=== PATIENT | male | born 1955 | race Caucasian/White ===

== ENCOUNTER 2016-12-13 07:03 | Inpatient (IN) | payer MEDICAID, MEDICARE, OTHER ==
[~2016-12-13] VITALS: Ht 172.7 cm; Wt 100.0 kg
[2016-12-13] VITALS (12 sets, daily range): BP systolic 65–151; BP diastolic 37–84; PULSE 84–110; RESP 14–28; TEMP 98; O2SAT 0–100
[~2016-12-13 07:03] MED LIST: MELO15TA2 PO; NOVO7030P2 SQ; TRAM50 PO
[2016-12-13] MEDS ORDERED: LISI-519 PO (07:10)
[2016-12-13] MEDS ORDERED: PLAV75TA29 PO (07:10)
[2016-12-13] MEDS ORDERED: ALPR0.25 PO (07:10)
[2016-12-13] MEDS ORDERED: ATOR40TA16 PO (07:10)
[2016-12-13] MEDS ORDERED: METF500T PO ×2 (07:10→09:53)
[2016-12-13] MEDS: NITROGLYCERIN 0.4 MG SL 25 TABS/BTL SL SCH ×3 (07:23→07:33)
[2016-12-13] MEDS ORDERED: SODIUM CHLORID 0.9% 500 ML INJ 500 ML IV ONE ×2 (07:30→08:30)
[2016-12-13] MEDS ORDERED: MORPHINE SULFATE 4 MG/ML INJ IV PUSH ONE (07:30)
[2016-12-13] MEDS ORDERED: SODIUM CHLORIDE 0.9% FLUSH 5 ML FLUSH IVF PRN (07:30)
[2016-12-13 07:42] LABS: BASOPHIL % 0.6 % (0.0-2.0); EOSINOPHIL # 1.1 TH/MM3 (0-0.4); EOSINOPHIL % 15.2 % (0.0-4.0); HEMATOCRIT 42.7 % (39.0-51.0); HEMO FLAGS DIFF FINAL; LYMPH % 19.9 % (9.0-44.0); LYMPHOCYTE # 1.4 TH/MM3 (1.0-4.8); MEAN CELL VOLUME 93.2 FL (80.0-100.0); MEAN CORPUSCULAR HEMOGLOBIN 30.9 PG (27.0-34.0); MEAN CORPUSCULAR HGB CONC 33.1 % (32.0-36.0); MONO % 7.5 % (0.0-8.0); NEUT % 56.8 % (16.0-70.0); PLATELET COUNT 248 TH/MM3 (150-450); RED BLOOD COUNT 4.58 MIL/MM3 (4.50-5.90); RED CELL DISTRIBUTION WIDTH 14.9 % (11.6-17.2); WHITE BLOOD COUNT 7.1 TH/MM3 (4.0-11.0)
--- NOTE | 2016-12-13 07:43 | RADRPT ---
EXAM DATE/TIME: 12/13/2016 07:33 [place] COMPARISON: No previous studies available for comparison. INDICATIONS : Chest Pain x 3 hours MEDICAL HISTORY : [facility] SURGICAL HISTORY : None. ENCOUNTER: Initial ACUITY: 1 day PAIN SCORE: 7/10 LOCATION: Bilateral chest FINDINGS: A single portable frontal view the chest shows interstitial prominence at the bases bilaterally. No e ffusions. Heart normal in size. No intra-alveolar infiltrates. Degenerative and scoliotic thoracic sp ine. CONCLUSION: Cardiomegaly with basilar interstitial prominence. This may relate to interstitial pulmonary edema. Abelino Moran Jr., MD on December 13, 2016 at 7:41 Board Certified Radiologist. This report was verified electronically.
[2016-12-13 07:53] LABS: APTT (PATIENT) 26.6 SEC (24.3-30.1); PROTHROMBIN TIME - PATIENT 11.4 SEC (9.8-11.6)
[2016-12-13 07:59] LABS: ANION GAP 12 MEQ/L (5-15); BICARBONATE 24.3 MEQ/L (21.0-32.0); BLOOD UREA NITROGEN 17 MG/DL (7-18); CHLORIDE 98 MEQ/L (98-107); GLOMERULAR FILTRATION RATE 46 ML/MIN (>89); MAGNESIUM 1.9 MG/DL (1.5-2.5); POTASSIUM 4.8 MEQ/L (3.5-5.1); SODIUM (NA) 134 MEQ/L (136-145)
[2016-12-13 08:03] LABS: CREATINE KINASE 194 U/L (39-308)
[2016-12-13] MEDS ORDERED: HEPARIN-D5W INJ 250 ML IV SCH (08:15)
[2016-12-13] MEDS ORDERED: HEPARIN SODIUM - IV 10,000 UNITS/10 ML VIAL IV ONE (08:15)
--- NOTE | 2016-12-13 08:18 | PD ---
HPI Chief Complaint: Chest Pain Time Seen by Provider: 07:17 Travel History International Travel<30 days: No Contact w/Intl Traveler<30days: No Traveled to known affect area: No History of Present Illness HPI Patient is a 61-year-old male with history of HTN, HLD, DM, PVD here with complaint of chest pain. Approximately 1.5 hours prior to arrival while at rest patient developed a "crushing" substernal/left-sided chest pain that radiated to the left shoulder. Associated nausea, diaphoresis, shortness of breath. Patient took 3 aspirin and called EMS. When EMS arrived he was cool pale diaphoretic, vital signs stable. He was given nitroglycerin in route. Twelve-lead EKG with a right bundle branch block. Patient does not have a known history of cardiac disease, and has never previously had any provocative testing. Prior to today patient has been asymptomatic. Pain is currently 5 out of 10 in severity. PFSH Past Medical History Hx Anticoagulant Therapy: Yes (PLAVIX) Blood Disorders: No Anxiety: Yes Depression: Yes Cancer: No Cardiovascular Problems: No High Cholesterol: Yes Diabetes: Yes Patient Takes Glucophage: Yes Diminished Hearing: No Endocrine: Yes Genitourinary: No Hypertension: Yes Immune Disorder: No Musculoskeletal: Yes (RIGHT SHOULDER DISLOCATION) Neurologic: No Psychiatric: Yes Reproductive: No Respiratory: No Thyroid Disease: No Tetanus Vaccination: Unknown Influenza Vaccination: No Past Surgical History Genitourinary Surgery: Yes (PROSTATE) Other Surgery: Yes (PROSTATE) Social History Alcohol Use: Yes (BEER DAILY) Tobacco Use: No Substance Use: No Allergies-Medications (Allergen,Severity, Reaction): Coded Allergies: Codeine (Verified Allergy, Mild, 04/01/13) Reported Meds & Prescriptions Reported Meds & Active Scripts Active Metformin (Metformin HCl) 500 Mg Tab 500 Mg PO DAILY With meals Reported Levemir Inj (Insulin Detemir) 1,000 unit/ 10 ML Vial 30 Units SQ BID Do not mix with any other Insulin. Humalog Inj (Insulin Human Lispro) 1,000 Unit/10 Ml Vial 20 Units SQ TIDAC Alprazolam 0.25 Mg Tab 0.25 Mg PO DAILY PRN Lisinopril 5 Mg Tab 5 Mg PO DAILY Atorvastatin (Atorvastatin Calcium) 40 Mg Tab 40 Mg PO HS Plavix (Clopidogrel Bisulfate) 75 Mg Tab 75 Mg PO DAILY Review of Systems ROS Limitations: Poor Historian Except as stated in HPI: all other systems reviewed are Neg Physical Exam Exam Limitations: Poor Historian Narrative GENERAL: Well-appearing elderly male appearing older than stated age in no acute distress SKIN: Warm and dry. HEAD: Normocephalic. EYES: No scleral icterus. No injection or drainage. ENT: No nasal bleeding or discharge. Mucous membranes pink and moist. NECK: Supple without bruit CARDIOVASCULAR: Tachycardic with heart rate in the 90s to 100s, regular rhythm. No murmur appreciated. RESPIRATORY: No accessory muscle use. Clear to auscultation. Breath sounds equal bilaterally. GASTROINTESTINAL: Abdomen soft, non-tender, nondistended. MUSCULOSKELETAL: No obvious deformities. No edema. Distal pulses palpable NEUROLOGICAL: Awake and alert. Motor grossly within normal limits. Normal speech. PSYCHIATRIC: Appropriate mood and affect; insight and judgment normal. Data Data Last Documented VS Vital Signs Date Time Temp Pulse Resp B/P Pulse Ox O2 Delivery O2 Flow Rate FiO2 12/13/16 08:30 84 14 79/37 98 Nasal Cannula 2 12/13/16 07:03 98.0 Orders Electrocardiogram (12/13/16 07:17) Basic Metabolic Panel (Bmp) (12/13/16 07:17) Ckmb (Isoenzyme) Profile (12/13/16 07:17) Complete Blood Count With Diff (12/13/16 07:17) Magnesium (Mg) (12/13/16 07:17) Prothrombin Time / Inr (Pt) (12/13/16 07:17) Act Partial Throm Time (Ptt) (12/13/16 07:17) Troponin I (12/13/16 07:17) Chest, Single Ap (12/13/16 07:17) Ecg Monitoring (12/13/16 07:17) Bilateral Bp Monitoring (12/13/16 07:17) Iv Access Insert/Monitor (12/13/16 07:17) Oximetry (12/13/16 07:17) Oxygen Administration (12/13/16 07:17) Morphine Inj (Morphine Inj) (12/13/16 07:30) Sodium Chloride 0.9% Flush (Ns Flush) (12/13/16 07:30) Nitroglycerin Sl (Nitrostat Sl) (12/13/16 07:30) Sodium Chlorid 0.9% 500 Ml Inj (Ns 500 M (12/13/16 07:30) Alcohol (Ethanol) (12/13/16 07:18) CKMB (12/13/16 07:15) CKMB% (12/13/16 07:15) Heparin Infusion PASCUAL.Q1H (12/13/16 08:14) Heparin Inj (Heparin Inj) (12/13/16 08:15) Heparin Inj (Heparin Inj) (12/13/16 14:15) Heparin Inj (Heparin Inj) (12/13/16 14:15) Heparin-D5w Inj (Heparin-D5w Inj) (12/13/16 08:15) Cbc No Diff, Includes Plts (12/16/16 06:00) Act Partial Throm Time (Ptt) (12/13/16 15:14) Occult Blood (Hemoccult) Stool (12/13/16 08:14) Nitroglycerin-Dextrose Inj (Nitroglyceri (12/13/16 08:30) Electrocardiogram (12/13/16 ) Sodium Chlorid 0.9% 500 Ml Inj (Ns 500 M (12/13/16 08:30) Admit Order (Ed Use Only) (12/13/16 08:29) Labs Laboratory Tests Test 12/13/16 07:15 White Blood Count 7.1 TH/MM3 Red Blood Count 4.58 MIL/MM3 Hemoglobin 14.1 GM/DL Hematocrit 42.7 % Mean Corpuscular Volume 93.2 FL Mean Corpuscular Hemoglobin 30.9 PG Mean Corpuscular Hemoglobin 33.1 % Concent Red Cell Distribution Width 14.9 % Platelet Count 248 TH/MM3 Mean Platelet Volume 7.7 FL Neutrophils (%) (Auto) 56.8 % Lymphocytes (%) (Auto) 19.9 % Monocytes (%) (Auto) 7.5 % Eosinophils (%) (Auto) 15.2 % Basophils (%) (Auto) 0.6 % Neutrophils # (Auto) 4.0 TH/MM3 Lymphocytes # (Auto) 1.4 TH/MM3 Monocytes # (Auto) 0.5 TH/MM3 Eosinophils # (Auto) 1.1 TH/MM3 Basophils # (Auto) 0.0 TH/MM3 CBC Comment DIFF FINAL Differential Comment Prothrombin Time 11.4 SEC Prothromb Time International 1.0 RATIO Ratio Activated Partial 26.6 SEC Thromboplast Time Sodium Level 134 MEQ/L Potassium Level 4.8 MEQ/L Chloride Level 98 MEQ/L Carbon Dioxide Level 24.3 MEQ/L Anion Gap 12 MEQ/L Blood Urea Nitrogen 17 MG/DL Creatinine 1.55 MG/DL Estimat Glomerular Filtration 46 ML/MIN Rate Random Glucose 342 MG/DL Calcium Level 8.8 MG/DL Magnesium Level 1.9 MG/DL Total Creatine Kinase 194 U/L Creatine Kinase MB 10.4 NG/ML Troponin I 0.17 NG/ML Ethyl Alcohol Level LESS THAN 3 MG/DL MDM Medical Decision Making Medical Screen Exam Complete: Yes Emergency Medical Condition: Yes Medical Record Reviewed: Yes Differential Diagnosis 61-year-old male with history of HTN, HLD, DM, PVD here with complaint of chest pain. Differential includes ACS, atypical chest pain, musculoskeletal, GERD, esophageal spasm, less likely aortic dissection or PE. Narrative Course Patient placed on monitor, IV established and blood obtained. A twelve-lead EKG shows sinus tachycardia, rate 109 with right bundle branch block and left anterior fascicular block. Q waves in the inferior leads and precordial leads V1, V2. This is new since patient's previous EKG on file in 2008. Patient had taken aspirin prior to arrival. Was given nitroglycerin here with 500 mL normal saline bolus for low normal blood pressure. Given 2 mg morphine. Portable chest x-ray obtained that by my read shows mild cardiomegaly. Radiology notes bibasilar interstitial prominence may be related to interstitial edema. CBC, BMP, magnesium, CK-MB, troponin, coags, blood alcohol level obtained and notable for creatinine 1.55, troponin 0.17. Patient still having some pain, nitroglycerin drip, heparin drip ordered. Patient admitted to medicine resident service for further management. Notified by nursing the patient's blood pressure is 86/48 prior to institution of these aforementioned drips. Patient given 500 mL normal saline bolus. Nursing instructed not to start heparin or nitroglycerin at this time. Will obtain CTA dissection study to rule this out. I spoke with bark spudder, Dr. Roman, who agrees with the above. We were getting ready to transport patient on portable monitor to CT for CT dissection study when patient had a 30 second spell of shaking, altered mental status. There is no coordination with arrhythmia on the monitor. Suspect seizure. Patient did have a postictal phase that correlated with this. Patient's blood pressure did not respond to 500 mL normal saline bolus. He became cool, pale, diaphoretic and having continued chest pain. Patient given an additional 1 L normal saline bolus. Given his diaphoresis and cool extremities were having issues obtaining both O2 saturations as well as blood pressures. He was started on norepinephrine. Central line was placed by myself , please see procedure note. Cough blood pressures were in the 60s systolic, additional IV fluids administered. Norepinephrine titrated up to 15. Arterial line was placed by respiratory therapy in the left radial artery. Unfortunately at this time patient woke from his post ictal phase became combative. Complaining of severe chest pain, low back pain. My suspicion is high for dissection. He remains hypotensive and nitroglycerin cannot be administered. Heparin was not started. It decision was made to intubate patient as he is obstructive with cares, hemodynamically unstable. Patient was intubated, please see procedure note. Postintubation blood pressures remained in the 110s, but patient became progressively more bradycardic. A twelve-lead EKG was being obtained when patient became hypotensive, and lost peripheral pulses. ACLS was followed. Patient received epinephrine, bicarbonate, calcium , please see code documentation. Patient was shocked twice for a ventricular fibrillation but most of his code was in PEA. Resuscitation attempts were continued for approximately 20 minutes without return of spontaneous circulation and efforts were discontinued. Time of 1018. Critical Care Narrative Aggregate critical care time was 90 minutes. Time to perform other separately billable procedures was not included in the critical care time. My time did not include minutes spent treating any other patients simultaneously or on activities that did not directly contribute to the patient's treatment. The services I provided to this patient were to treat and/or prevent clinically significant deterioration that could result in: Cardiopulmonary decompensation, neurologic decompensation, , disability I provided critical care services requiring my management, as noted below: Chart data review, documentation time, medication orders and management, vital sign assessments/reviewing monitor data, ordering and reviewing lab tests, ordering and interpreting/reviewing x-rays and diagnostic studies, care of the patient and discussion of the patient with the admitting physicians. Procedures Procedure Narrative CENTRAL VENOUS LINE: The site was prepped with Betadine and sterilely draped. It was infiltrated with 1% lidocaine plain. The deep vein was cannulated using normal Seldinger technique. A triple lumen central line was placed in the right IJ site and secured with simple interrupted suture. The site was sterilely dressed. The patient tolerated the procedure well. Risks and benefits were not discussed as procedure was deemed emergent: INTUBATION: The patient was put in optimal position for the procedure. Rapid sequence intubation was initiated by me using 10 milligrams of etomidate IV and 150 milligrams of succinylcholine IV. The patient was intubated with a 8-0 cuffed endotracheal tube. Tube placement was confirmed by visualization of the tube and balloon passing through the cords, capnometry and subsequent chest x- ray. Breath sounds were equal and well aerated bilaterally postintubation. No breath sounds over stomach. Patient tolerated procedure well. Diagnosis Primary Impression: Cardiac arrest Additional Impressions: Chest pain Qualified Code: R07.2 - Precordial pain Non-ST elevation CT (NSTEMI) Right bundle branch block Renal insufficiency Acute respiratory failure Qualified Code: J96.01 - Acute respiratory failure with hypoxia Cardiogenic shock Scripts Metformin 500 Mg [id number] Mg PO DAILY #60 TAB Ref 0 With meals Prov:Marguerite Murrell MD R1 12/13/16 Disposition: 20 SENT TO [facility] Condition: Shelbi Bagley MD Dec 13, 2016 08:18
[2016-12-13] MEDS ORDERED: NITROGLYCERIN-DEXTROSE INJ 250 ML IV ONE (08:30)
--- NOTE | 2016-12-13 08:38 | HHI.HP ---
HPI Service Family Medicine Primary Care Physician Irma Gonzalez, DO Admission Diagnosis non-ST elevation [place], chest pain Diagnoses: International Travel<30 Days: No Contact w/Intl Traveler<30days: No Known Affected Area: No History of Present Illness 61 yo M here for chest discomfort and pressure. States symptoms started this morning after waking up. Described as a chest pressure associated with nausea and diaphoresis. His history is limited by discomfort and he appears lethargic. During the time of the interview, he is obviously uncomfortable and lethargic, unable to answer questions appropriately. Upon arrival, he had an EKG showing marked left axis deviation and possible septal infarction with RBBB. He also had an elevated troponin of 0.17. He was given Nitrostat SL x1 as well as 2mg of morphine and his blood pressure decreased to 67/39. He was then given a 500ml bolus x1 with a 1000ml bolus x1. He was set to be transported to CT scan for a CTA of the thoracic/abdomen aorta to evaluate for dissection when he had an apparent seizure vs. arrythmia. The CTA was held and attempts were made at stabilizing the patient in the ED by the ED physician. A blood pressure was unable to obtained by manual cuff. Central line was placed at that time in the right IJ with norepinephrine started at 10 with an increase in his blood pressure to 71/39. 12 lead EKG was obtained and was unchanged at that time. At 09:58 am pt. heart rate dropped into the 30s and then he went without a pulse. Code Blue was called and CPR was started. ACLS was performed for 20minutes with V.fib requiring electric shock x4. Patient then went into PEA and ACLS protocol was continued for 20 minutes prior to being called. Time of is 10:18. Please see code documentation for full details of medication dispensed during ACLS. Review of Systems ROS Limitations: Clinical Condition Respiratory: COMPLAINS OF: Shortness of breath Cardiovascular: COMPLAINS OF: Chest pain Gastrointestinal: COMPLAINS OF: Abdominal pain Past Family Social History Past Medical History Difficult to assess due to patient condition - not likely a complete list: Diabetes mellitus anxiety peripheral vascular disease right shoulder dislocation hypercholesterolemia hypertension Past Surgical History Right great toe surgery Reported Medications Reported Meds & Active Scripts Active Reported Alprazolam 0.25 Mg Tab 0.25 Mg PO DAILY PRN Lisinopril 5 Mg Tab 5 Mg PO DAILY Metformin (Metformin HCl) 500 Mg Tab 500 Mg PO BIDPC With meals Atorvastatin (Atorvastatin Calcium) 40 Mg Tab 40 Mg PO HS Plavix (Clopidogrel Bisulfate) 75 Mg Tab 75 Mg PO DAILY Allergies: Coded Allergies: Codeine (Verified Allergy, Mild, 04/01/13) Family History Per ED documentation: Prostate surgery Social History Per the ED documentation: daily alcohol use denies tobacco or illicit drugs Physical Exam Vital Signs Vital Signs Date Time Temp Pulse Resp B/P Pulse Ox O2 Delivery O2 Flow Rate FiO2 12/13/16 08:15 91 17 86/38 97 Nasal Cannula 2 86/39 12/13/16 08:09 16 12/13/16 08:09 16 12/13/16 08:00 100 16 86/48 97 Nasal Cannula 2 Automatic Cuff 12/13/16 07:16 108 16 98 Nasal Cannula 2 12/13/16 07:15 99 Nasal Cannula 2 12/13/16 07:15 16 98 Room Air 12/13/16 07:03 98.0 110 16 114/84 98 Physical Exam GENERAL: Obviously uncomfortable male, diaphoretic and clutching at his chest SKIN: No rashes, ecchymoses or lesions. Skin is cool and clammy/diaphoretic HEAD: Atraumatic. Normocephalic. EYES: Pupils equal round and reactive. Extraocular motions intact. No scleral icterus. No injection or drainage. NECK: Trachea midline. No JVD or lymphadenopathy. Supple, nontender, no meningeal signs. CARDIOVASCULAR: distant heart sounds but regular without murmur. RESPIRATORY: Clear to auscultation. Breath sounds equal bilaterally. No wheezes , rales, or rhonchi. GASTROINTESTINAL: Abdomen soft, diffusely tender. No hepato-splenomegaly, or palpable masses. MUSCULOSKELETAL: Extremities without clubbing, cyanosis, or edema. Negative Homans sign bilaterally. NEUROLOGICAL: Somewhat confused and lethargic due to pain Laboratory Laboratory Tests Test 12/13/16 07:15 White Blood Count 7.1 Red Blood Count 4.58 Hemoglobin 14.1 Hematocrit 42.7 Mean Corpuscular Volume 93.2 Mean Corpuscular Hemoglobin 30.9 Mean Corpuscular Hemoglobin 33.1 Concent Red Cell Distribution Width 14.9 Platelet Count 248 Mean Platelet Volume 7.7 Neutrophils (%) (Auto) 56.8 Lymphocytes (%) (Auto) 19.9 Monocytes (%) (Auto) 7.5 Eosinophils (%) (Auto) 15.2 Basophils (%) (Auto) 0.6 Neutrophils # (Auto) 4.0 Lymphocytes # (Auto) 1.4 Monocytes # (Auto) 0.5 Eosinophils # (Auto) 1.1 Basophils # (Auto) 0.0 CBC Comment DIFF FINAL Differential Comment Prothrombin Time 11.4 Prothromb Time International 1.0 Ratio Activated Partial 26.6 Thromboplast Time Sodium Level 134 Potassium Level 4.8 Chloride Level 98 Carbon Dioxide Level 24.3 Anion Gap 12 Blood Urea Nitrogen 17 Creatinine 1.55 Estimat Glomerular Filtration 46 Rate Random Glucose 342 Calcium Level 8.8 Magnesium Level 1.9 Total Creatine Kinase 194 Troponin I 0.17 Ethyl Alcohol Level LESS THAN 3 Result Diagram: 12/13/1671412/13/16714 Imaging Last 48 hours Impressions Chest X-Ray 12/13/16716 Signed Impressions: Service Date/Time: Tuesday, December 13, 2016 07:33 - CONCLUSION: Cardiomegaly with basilar interstitial prominence. This may relate to interstitial pulmonary edema. Abelino Moran Jr., MD Course Prior to transport to [facility] - patient had a tonic seizure with posturing lasting approximately 15 seconds. He was post-ictal following the seizure with confusion and lethargy. Septic Shock Reassessment Heart: Regular rate and rhythm Lungs: Clear Skin: Cold, Mottled Peripheral Pulses: Weak Right Radial Weak Left Radial Assessment and Plan Assessment and Plan 61 yo M presenting with chest pain and likely NSTEMI - required right IJ placement and sedation/intubation in the ED prior to losing a pulse and Code Blue being called. ACLS performed as below: Problem List: (1) Non-ST elevated myocardial infarction Status: Acute Plan: Presentation consistent with NSTEMI - Given nitrostat and morphine 2mg x1 with decrease in blood pressure Heparin drip was initially ordered but held due to seizure and acute decompensation Stabilized in the ED by the ED physician with placement of right IJ and started on Levophed - IV Bolus of NS 500ml, 1000ml, and 1000ml (2.5 L total) - Levophed drip started - Pt. sedated and intubated in the ED - ED physician to discuss case with clerk checker - Plan [place] [facility] [place] ACLS was performed as patient went unresponsive and pulseless at 09:58. ACLS performed for 20minutes without resumption of pulse and was called at 10:18 with time of at 10:18 (2) Hypotension Status: Acute Plan: Likely cardiogenic shock vs. PE - attempt at stabilization emergently in the ED requiring CPR / ACLS protocol (3) Acute renal failure (ARF) Status: Acute Plan: Likely related to hypotension and possible cardiogenic shock - Creatinine on arrival was 1.55 (4) Seizure Status: Acute Plan: Witnessed seizure in the ED prior to Code Blue (5) Hyperlipidemia Status: Chronic (6) Peripheral vascular disease Status: Chronic (7) Hypertension Status: Acute (8) Alcohol abuse Status: Acute Plan: h/o alcohol abuse in chart (9) Diabetes mellitus Status: Acute Physician Certification 2 Midnight Certification Type: Admission for Inpatient Services Order for Inpatient Services The services are ordered in accordance with Medicare regulations or non- Medicare payer requirements, as applicable. In the case of services not specified as inpatient-only, they are appropriately provided as inpatient services in accordance with the 2-midnight benchmark. Estimated LOS (days): 2 2 days is the estimated time the patient will need to remain in the hospital, assuming treatment plan goals are met and no additional complications. Post-Hospital Plan: Not yet determined Problem Qualifiers (1) Hypotension: Qualified Code: I95.9 - Hypotension, unspecified hypotension type (2) Acute renal failure (ARF): Qualified Code: N17.9 - Acute renal failure, unspecified acute renal failure type (3) Hyperlipidemia: Qualified Code: E78.2 - Mixed hyperlipidemia (4) Hypertension: Qualified Code: I10 - Essential hypertension (5) Diabetes mellitus: Will Lau MD Dec 13, 2016 08:38 The services are ordered in accordance with Medicare regulations or non- Medicare payer requirements, as applicable. In the case of services not specified as inpatient-only, they are appropriately provided as inpatient services in accordance with the 2-midnight benchmark. Estimated LOS (days): 2 2 days is the estimated time the patient will need to remain in the hospital, assuming treatment plan goals are met and no additional complications. Post-Hospital Plan: Not yet determined Problem Qualifiers (1) Hypotension: Qualified Code: I95.9 - Hypotension, unspecified hypotension type (2) Acute renal failure (ARF): Qualified Code: N17.9 - Acute renal failure, unspecified acute renal failure type (3) Hyperlipidemia: Qualified Code: E78.2 - Mixed hyperlipidemia (4) Hypertension: Qualified Code: I10 - Essential hypertension Will Lau MD Dec 13, 2016 08:38
[2016-12-13 08:53] LABS: CKMB 10.4 NG/ML (0.5-3.6)
[2016-12-13] MEDS ORDERED: NOREPINEPHRINE-DEXTROSE DRIP 250 ML IV SCH (09:00)
[2016-12-13] MEDS ORDERED: ONDANSETRON HCL 4 MG/2 ML VIAL ONE (09:05)
[2016-12-13] MEDS ORDERED: NOREPINEPHRINE 4 MG/4 ML AMP ONE (09:08)
[2016-12-13] MEDS ORDERED: SUCCINYLCHOLINE CHLORIDE 200 MG/10 ML VIAL ONE (09:26)
[2016-12-13] MEDS ORDERED: ETOMIDATE 20 MG/10 ML VIAL ONE (09:26)
[2016-12-13] MEDS ORDERED: SODIUM CHLORIDE 0.9% FLUSH 5 ML FLUSH FLUSH PRN (09:45)
[2016-12-13] MEDS ORDERED: NALOXONE HCL 0.4 MG/ML AMP IV PRN (09:45)
[2016-12-13] MEDS ORDERED: ETOMIDATE 40 MG/20 ML VIAL ONE (09:47)
[2016-12-13] MEDS ORDERED: PROPOFOL 500 MG/50 ML INJ 50 ML ONE (09:48)
[2016-12-13] MEDS ORDERED: MIDAZOLAM 100 MG/ML INJ 100 ML ONE (09:49)
[2016-12-13] MEDS ORDERED: HUMALOG SQ (09:53)
[2016-12-13] MEDS ORDERED: LEVEMIR SQ (09:53)
[2016-12-13] MEDS ORDERED: AMIODARONE HCL 150 MG/3 ML VIAL IV ONE (10:17)
[2016-12-13] MEDS ORDERED: SODIUM BICARBONATE 8.4% INJ 50 MEQ/50 ML SYR IV ONE (10:17)
[2016-12-13] MEDS ORDERED: CALCIUM CHLORIDE 10% SOLN 13.6 MEQ/10 ML SYR IV ONE (10:17)
[2016-12-13] MEDS ORDERED: methylPREDNISolone SOD SUCC 1000 MG/16 ML VIAL IV ONE (10:17)
[2016-12-13] MEDS ORDERED: EPINEPHrine HCL (1:10,000) 1 MG/10 ML SYRINGE IV ONE (10:17)
[2016-12-13] MEDS ORDERED: INSULIN ASPART SUPPLEMENTAL SCALE SQ SCH (11:00)
[2016-12-13] MEDS ORDERED: HEPARIN SODIUM - IV 10,000 UNITS/10 ML VIAL IV PRN ×2 (14:15)
--- NOTE | 2016-12-13 15:13 | EKG ---
Date Performed: 12/13/2016 Time Performed: 07:12:28 PTAGE: 61 years EKG: SINUS TACHYCARDIA LEFT ATRIAL ENLARGEMENT MARKED LEFT AXIS DEVIATION INTRAVENTRICULAR CONDU CTION DELAY SEPTAL MYOCARDIAL INFARCTION ABNORMAL ECG PREVIOUS TRACING 06/01/2009 13.09.16 Compared to previous tracing, the patient has a wide inte rventricular conduction with repolarization abnormalities potentially consistent with an acute injury pattern versus profound electrolyte abnormality versus other. Clinical correlation suggested. DOCTOR: Kae Millan Interpretating Date/Time 12/13/2016 15:11:37
--- NOTE | 2016-12-13 15:14 | EKG ---
Date Performed: 12/13/2016 Time Performed: 09:01:52 PTAGE: 61 years EKG: Sinus rhythm WITH FREQUENT VENTRICULAR PREMATURE COMPLEXES POSSIBLE LEFT ATRIAL ENLARGEMENT MARKED LEFT AXIS AISHWARYA ATION INTRAVENTRICULAR CONDUCTION DELAY POSSIBLE SEPTAL MYOCARDIAL INFARCTION ABNORMAL ECG PREVIOUS TRACING : 12/13/2016 08.22 Since previous tracing, no significant change noted DOCTOR: Kae Millan Interpretating Date/Time 12/13/2016 15:12:47
--- NOTE | 2016-12-13 15:14 | EKG ---
Date Performed: 12/13/2016 Time Performed: 08:22:46 PTAGE: 61 years EKG: Sinus rhythm WITH FREQUENT VENTRICULAR PREMATURE COMPLEXES POSSIBLE LEFT ATRIAL ENLARGEMENT MARKED LEFT AXIS AISHWARYA ATION INTRAVENTRICULAR CONDUCTION DELAY SEPTAL MYOCARDIAL INFARCTION ABNORMAL ECG PREVIOUS TRACING : 12/13/2016 07.12.28 Compared to previous tracing, the patient is no longer t achycardic. DOCTOR: Kae Millan Interpretating Date/Time 12/13/2016 15:12:29
[2016-12-13] MEDS ORDERED: SODIUM CHLORIDE 0.9% FLUSH 5 ML FLUSH FLUSH SCH (21:00)
== END 2016-12-13 10:18 | disposition expired ==
LOC: NEPE 07:03 → NEDA 08:31
PROVIDERS: ADMIT Family Medicine; ATTEND Family Medicine
PROC: 0BH17EZ Insertion of Endotracheal Airway into Trachea, Via Natural or Artificial Opening (ICD-10-PCS; principal; 2016-12-13)
PROC: 5A2204Z Restoration of Cardiac Rhythm, Single (ICD-10-PCS; 2016-12-13)
PROC: 5A2204Z Restoration of Cardiac Rhythm, Single (ICD-10-PCS; 2016-12-13)
PROC: 05HM33Z Insertion of Infusion Device into Right Internal Jugular Vein, Percutaneous Approach (ICD-10-PCS; 2016-12-13)
DX: I21.4 Non-ST elevation (NSTEMI) myocardial infarction (principal); J96.01 Acute respiratory failure with hypoxia; I49.01 Ventricular fibrillation; I45.2 Bifascicular block; N17.9 Acute kidney failure, unspecified; R57.0 Cardiogenic shock; M54.5 Low back pain; I51.7 Cardiomegaly; E78.00 Pure hypercholesterolemia, unspecified; E78.5 Hyperlipidemia, unspecified; F10.10 Alcohol abuse, uncomplicated; R56.9 Unspecified convulsions; Z79.84 Long term (current) use of oral hypoglycemic drugs; E11.9 Type 2 diabetes mellitus without complications; I73.9 Peripheral vascular disease, unspecified
CPT/HCPCS: 31500; 36556; 71010; 80048; 80307; 82550; 82552; 83735; 84484; 85025; 85610; 85730; 93005; 96361; 96374; 96375; 99292; J0171; J0282; J0330; J2250; J2270; J2405; J2930; J7040